=== PATIENT | female | born 1955 | race Caucasian/White ===

== ENCOUNTER 2017-11-22 15:44 | Emergency (ER) | payer MEDICARE, OTHER ==
[~2017-11-22] VITALS: Ht 167.6 cm; Wt 112.5 kg
[~2017-11-22 15:44] MED LIST: ALLO300 PO; ASPI325EC; ATEN25; ATEN50 PO; AZIT250 PO; CITA20 PO; CYCL10 PO; DIAZ10 PO; DIPH25; ESTR.9; FLUO20 PO; FLUT.05NI; HYDACE5; HYDACE5 PO; IBUP800 PO; LEVSOD50 PO; METO50ER PO; NAPR500 PO; NITR100 PO; OMEP40CA12 PO; OXYC1TAB11 PO; PHENA100 PO; PRAV20 PO; TRIA50; TRIHYD5075 PO
[2017-11-22] MEDS ORDERED: METPRE4DP PO (17:11)
== END 2017-11-22 17:17 | disposition home or self-care (01) ==
LOC: ER 15:44
DX: M10.9 Gout, unspecified (principal); Z88.8 Allergy status to other drugs, medicaments and biological substances; Z79.899 Other long term (current) drug therapy; Z79.891 Long term (current) use of opiate analgesic; I10 Essential (primary) hypertension; E78.5 Hyperlipidemia, unspecified; Z87.891 Personal history of nicotine dependence
CPT/HCPCS: 99282

== ENCOUNTER 2017-12-08 21:38 | Inpatient (IN) | payer MEDICARE, OTHER ==
[~2017-12-08] VITALS: Ht 167.6 cm; Wt 110.0 kg
[~2017-12-08 21:38] MED LIST changes: +METPRE4DP PO
[2017-12-08 22:22] LABS: BASOPHILS ABSOLUTE AUTO 0.04 K/mm3 (0.00-0.23); BASOPHILS PERCENT AUTO 1 % (0-2); EOSINOPHILS ABSOLUTE AUTO 0.09 K/mm3 (0.00-0.68); EOSINOPHILS PERCENT AUTO 1 % (0-6); Hematocrit 44.5 % (33.0-51.0); Hemoglobin 14.2 g/dL (11.5-16.0); IMMATURE GRAN ABSOLUTE AUTO 0.02 K/mm3 (0.00-0.10); IMMATURE GRAN PERCENT AUTO 0 % (0-1); LYMPHOCYTES ABSOLUTE AUTO 2.79 K/mm3 (0.84-5.20); LYMPHOCYTES PERCENT AUTO 33 % (21-46); MONOCYTES PERCENT AUTO 11 % (4-13); Mean Corpuscular HGB 26.8 pg (26.0-34.0); Mean Corpuscular HGB Conc 31.9 g/dL (31.5-36.5); Mean Corpuscular Volume 84 fL (80-100); Mean Platelet Volume 10.6 fL (9.1-12.4); NEUTROPHILS ABSOLUTE AUTO 4.75 K/mm3 (1.96-9.15); NEUTROPHILS PERCENT AUTO 55 % (41-73); Platelet Count 322 K/mm3 (150-400); RDW Coefficient Variation 13.3 % (11.7-14.2); RDW Standard Deviation 40.9 fL (35.1-46.3); White Blood Cell Count 8.59 K/mm3 (4.00-11.30)
[2017-12-08 22:42] LABS: Alanine Aminotransfer (ALT/SGP 41 U/L (12-78); Albumin, Blood 3.4 g/dL (3.4-5.0); Albumin/Globulin Ratio 0.7 (0.8-1.8); Alk Phos 143 U/L (50-136); Anion Gap 10 mmol/L (6-16); Aspartate Aminotrans (AST/SGOT 31 U/L (12-37); Bilirubin, Total 0.5 mg/dL (0.1-1.0); Blood Urea Nitrogen 15 mg/dL (8-24); Bun/Creatinine Ratio 12.4 (12.0-20.0); CO2, Blood 26 mmol/L (21-32); Calcium, Blood 8.5 mg/dL (8.5-10.1); Chloride, Blood 105 mmol/L (98-108); Creatinine, Blood 1.21 mg/dL (0.40-1.00); Globulin, Blood 4.6 g/dL (2.2-4.0); Glomerular Filtration Rate 48 (60-); Glucose, Blood 131 mg/dL (70-99); Potassium, Blood 3.4 mmol/L (3.5-5.5); Sodium, Blood 141 mmol/L (136-145); Troponin I <0.015 ng/mL (0.000-0.040)
[2017-12-08] MEDS ORDERED: MONT10T PO (22:44)
[2017-12-08] MEDS ORDERED: FURO40 PO (22:45)
[2017-12-08] MEDS ORDERED: ELIQUIS5 MG PO (22:45)
[2017-12-08] MEDS ORDERED: PANT40 PO (22:45)
[2017-12-08] MEDS ORDERED: Prozac20 MG PO (22:46)
[2017-12-08] MEDS ORDERED: EZET10 PO (22:47)
[2017-12-08] MEDS ORDERED: POTCHL20ER PO (22:47)
[2017-12-08] MEDS ORDERED: ATOR80 PO (22:47)
[2017-12-08] MEDS ORDERED: NITR.4SL SL (22:48)
[2017-12-08] MEDS ORDERED: ASPI81CH PO (22:48)
[2017-12-08 23:18] LABS: Magnesium, Blood 1.5 mg/dL (1.6-2.4)
[2017-12-09] MEDS ORDERED: Toprol Xl50 MG PO (00:29)
[2017-12-09] MEDS ORDERED: METO50ER PO (03:36)
[2017-12-09 04:31] LABS: Bun/Creatinine Ratio 12.9 (12.0-20.0); Calcium, Blood 8.1 mg/dL (8.5-10.1); Creatinine, Blood 1.16 mg/dL (0.40-1.00); Potassium, Blood 3.5 mmol/L (3.5-5.5)
[2017-12-09 23:21] LABS: Source, Urine Clean Catch
[2017-12-09 23:25] LABS: Bilirubin, Urine Neg (Neg); Blood, Urine Neg (Neg); Glucose Qualitative, Urine Neg (Neg); Ketones, Urine Neg (Neg); Leukocyte Esterase, Urine Neg (Neg); Nitrite, Urine Neg (Neg); Protein, Urine Neg (Neg); Urobilinogen, Urine NORM (Normal)
[2017-12-09 23:41] LABS: Appearance, Urine Clear (Clear); Color, Urine Yellow (P-Yellow)
[2017-12-10 04:14] LABS: BASOPHILS ABSOLUTE AUTO 0.03 K/mm3 (0.00-0.23); BASOPHILS PERCENT AUTO 1 % (0-2); EOSINOPHILS ABSOLUTE AUTO 0.14 K/mm3 (0.00-0.68); EOSINOPHILS PERCENT AUTO 2 % (0-6); Hematocrit 36.4 % (33.0-51.0); Hemoglobin 11.3 g/dL (11.5-16.0); IMMATURE GRAN ABSOLUTE AUTO 0.01 K/mm3 (0.00-0.10); IMMATURE GRAN PERCENT AUTO 0 % (0-1); LYMPHOCYTES ABSOLUTE AUTO 2.16 K/mm3 (0.84-5.20); LYMPHOCYTES PERCENT AUTO 36 % (21-46); MONOCYTES ABSOLUTE AUTO 0.56 K/mm3 (0.16-1.47); MONOCYTES PERCENT AUTO 9 % (4-13); Mean Corpuscular HGB 26.5 pg (26.0-34.0); Mean Corpuscular Volume 85 fL (80-100); Mean Platelet Volume 10.8 fL (9.1-12.4); NEUTROPHILS ABSOLUTE AUTO 3.06 K/mm3 (1.96-9.15); NEUTROPHILS PERCENT AUTO 51 % (41-73); Platelet Count 247 K/mm3 (150-400); RDW Coefficient Variation 13.6 % (11.7-14.2); RDW Standard Deviation 42.1 fL (35.1-46.3); Red Blood Cell Count 4.27 M/mm3 (3.80-5.20); White Blood Cell Count 5.96 K/mm3 (4.00-11.30)
[2017-12-10 04:38] LABS: Alanine Aminotransfer (ALT/SGP 33 U/L (12-78); Albumin, Blood 2.7 g/dL (3.4-5.0); Albumin/Globulin Ratio 0.7 (0.8-1.8); Alk Phos 111 U/L (50-136); Anion Gap 6 mmol/L (6-16); Aspartate Aminotrans (AST/SGOT 25 U/L (12-37); Bilirubin, Total 0.5 mg/dL (0.1-1.0); Blood Urea Nitrogen 15 mg/dL (8-24); Bun/Creatinine Ratio 14.3 (12.0-20.0); CHOL/HDL RATIO 3.7; CO2, Blood 27 mmol/L (21-32); Calcium, Blood 8.5 mg/dL (8.5-10.1); Chloride, Blood 109 mmol/L (98-108); Cholesterol 122 mg/dL (50-200); Creatinine, Blood 1.05 mg/dL (0.40-1.00); Globulin, Blood 3.7 g/dL (2.2-4.0); Glomerular Filtration Rate 56 (60-); Glucose, Blood 118 mg/dL (70-99); HDL Cholesterol 33 mg/dL (>39); LDL/HDL RATIO 1.9; Low Density Lipoprotein Chol 63 mg/dL (0-110); Magnesium, Blood 2.1 mg/dL (1.6-2.4); Potassium, Blood 3.7 mmol/L (3.5-5.5); Sodium, Blood 142 mmol/L (136-145); Total Protein, Blood 6.4 g/dL (6.4-8.2); Triglycerides 131 mg/dL (30-160); Very Low Density Lipoprot Chol 26 mg/dL (6-32)
== END 2017-12-10 10:47 | disposition home or self-care (01) | DRG 309 ==
LOC: ER 21:38 → PCU 21:39
PROVIDERS: Emergency Medicine; Internal Medicine
DX: I48.91 Unspecified atrial fibrillation (principal); N17.9 Acute kidney failure, unspecified; I25.10 Atherosclerotic heart disease of native coronary artery without angina pectoris; E11.9 Type 2 diabetes mellitus without complications; E87.6 Hypokalemia; E83.42 Hypomagnesemia; E78.5 Hyperlipidemia, unspecified; M10.9 Gout, unspecified; I10 Essential (primary) hypertension; Z88.1 Allergy status to other antibiotic agents; Z95.5 Presence of coronary angioplasty implant and graft; E03.9 Hypothyroidism, unspecified; Z87.891 Personal history of nicotine dependence; Z79.82 Long term (current) use of aspirin; Z79.899 Other long term (current) drug therapy
CPT/HCPCS: 36415; 71046; 80048; 80053; 80061; 81003; 83735; 83880; 84443; 84484; 85025; 93005; 93010; 93306; 96365; 96368; 96375; 99285; J3475; J3480; J7030

== ENCOUNTER 2017-12-18 19:24 | Emergency (ER) | payer OTHER, MEDICARE ==
[~2017-12-18] VITALS: Ht 167.6 cm; Wt 109.8 kg
[~2017-12-18 19:24] MED LIST changes: +ASPI81CH PO; +ATOR80 PO; +ELIQUIS5 MG PO; +EZET10 PO; +FURO40 PO; +MONT10T PO; +NITR.4SL SL; +PANT40 PO; +POTCHL20ER PO; +Prozac20 MG PO; +Toprol Xl50 MG PO
[2017-12-18 20:10] LABS: BASOPHILS ABSOLUTE AUTO 0.04 K/mm3 (0.00-0.23); BASOPHILS PERCENT AUTO 0 % (0-2); EOSINOPHILS PERCENT AUTO 1 % (0-6); Hematocrit 43.6 % (33.0-51.0); Hemoglobin 13.8 g/dL (11.5-16.0); IMMATURE GRAN ABSOLUTE AUTO 0.05 K/mm3 (0.00-0.10); IMMATURE GRAN PERCENT AUTO 1 % (0-1); LYMPHOCYTES ABSOLUTE AUTO 1.38 K/mm3 (0.84-5.20); LYMPHOCYTES PERCENT AUTO 13 % (21-46); MONOCYTES ABSOLUTE AUTO 0.83 K/mm3 (0.16-1.47); MONOCYTES PERCENT AUTO 8 % (4-13); Mean Corpuscular HGB 26.6 pg (26.0-34.0); Mean Corpuscular HGB Conc 31.7 g/dL (31.5-36.5); Mean Corpuscular Volume 84 fL (80-100); Mean Platelet Volume 11.2 fL (9.1-12.4); NEUTROPHILS ABSOLUTE AUTO 8.17 K/mm3 (1.96-9.15); NEUTROPHILS PERCENT AUTO 77 % (41-73); Platelet Count 269 K/mm3 (150-400); RDW Coefficient Variation 13.8 % (11.7-14.2); RDW Standard Deviation 42.6 fL (35.1-46.3); Red Blood Cell Count 5.18 M/mm3 (3.80-5.20); White Blood Cell Count 10.57 K/mm3 (4.00-11.30)
[2017-12-18 20:45] LABS: Alanine Aminotransfer (ALT/SGP 38 U/L (12-78); Albumin, Blood 3.5 g/dL (3.4-5.0); Albumin/Globulin Ratio 0.8 (0.8-1.8); Alk Phos 148 U/L (50-136); Anion Gap 8 mmol/L (6-16); Aspartate Aminotrans (AST/SGOT 31 U/L (12-37); Bilirubin, Total 0.6 mg/dL (0.1-1.0); Blood Urea Nitrogen 16 mg/dL (8-24); CO2, Blood 27 mmol/L (21-32); Chloride, Blood 107 mmol/L (98-108); Creatinine, Blood 1.23 mg/dL (0.40-1.00); Globulin, Blood 4.3 g/dL (2.2-4.0); Glomerular Filtration Rate 47 (60-); Glucose, Blood 123 mg/dL (70-99); Potassium, Blood 3.5 mmol/L (3.5-5.5); Sodium, Blood 142 mmol/L (136-145); Total Protein, Blood 7.8 g/dL (6.4-8.2); Troponin I <0.015 ng/mL (0.000-0.040)
[2017-12-18 22:27] LABS: International Normalized Ratio 1.26; Prothrombin Time Results 13.2 Sec (9.7-11.5)
[2017-12-18] MEDS ORDERED: Norco 5-325 Ta1 EACH PO (23:27)
== END 2017-12-18 23:54 | disposition home or self-care (01) ==
LOC: ER 19:24
PROVIDERS: Emergency Medicine
DX: S20.211A Contusion of right front wall of thorax, initial encounter (principal); S30.1XXA Contusion of abdominal wall, initial encounter; I48.91 Unspecified atrial fibrillation; I10 Essential (primary) hypertension; E78.5 Hyperlipidemia, unspecified; Z88.1 Allergy status to other antibiotic agents; Z79.899 Other long term (current) drug therapy; Z79.82 Long term (current) use of aspirin; V47.5XXA Car driver injured in collision with fixed or stationary object in traffic accident, initial encounter
CPT/HCPCS: 36415; 70450; 71046; 71260; 72125; 74177; 80053; 84484; 85025; 85610; 93005; 93010; 96361; 96374; 96375; 99284; G0480; J3010; J7030; Q9967

== ENCOUNTER 2018-01-12 18:36 | Inpatient (IN) | payer OTHER, MEDICARE ==
[~2018-01-12] VITALS: Ht 167.6 cm; Wt 105.9 kg
[~2018-01-12 18:36] MED LIST changes: +Norco 5-325 Ta1 EACH PO
[2018-01-12 19:14] LABS: BASOPHILS ABSOLUTE AUTO 0.03 K/mm3 (0.00-0.23); BASOPHILS PERCENT AUTO 0 % (0-2); EOSINOPHILS ABSOLUTE AUTO 0.09 K/mm3 (0.00-0.68); EOSINOPHILS PERCENT AUTO 1 % (0-6); Hematocrit 38.1 % (33.0-51.0); Hemoglobin 12.3 g/dL (11.5-16.0); IMMATURE GRAN ABSOLUTE AUTO 0.01 K/mm3 (0.00-0.10); IMMATURE GRAN PERCENT AUTO 0 % (0-1); LYMPHOCYTES ABSOLUTE AUTO 2.08 K/mm3 (0.84-5.20); LYMPHOCYTES PERCENT AUTO 22 % (21-46); MONOCYTES ABSOLUTE AUTO 1.02 K/mm3 (0.16-1.47); MONOCYTES PERCENT AUTO 11 % (4-13); Mean Corpuscular HGB 26.5 pg (26.0-34.0); Mean Corpuscular HGB Conc 32.3 g/dL (31.5-36.5); Mean Corpuscular Volume 82 fL (80-100); Mean Platelet Volume 10.4 fL (9.1-12.4); NEUTROPHILS ABSOLUTE AUTO 6.36 K/mm3 (1.96-9.15); NEUTROPHILS PERCENT AUTO 66 % (41-73); Platelet Count 289 K/mm3 (150-400); RDW Coefficient Variation 13.6 % (11.7-14.2); RDW Standard Deviation 40.6 fL (35.1-46.3); Red Blood Cell Count 4.65 M/mm3 (3.80-5.20); White Blood Cell Count 9.59 K/mm3 (4.00-11.30)
[2018-01-12 19:45] LABS: Alanine Aminotransfer (ALT/SGP 31 U/L (12-78); Albumin, Blood 3.1 g/dL (3.4-5.0); Albumin/Globulin Ratio 0.7 (0.8-1.8); Alk Phos 206 U/L (50-136); Anion Gap 10 mmol/L (6-16); Aspartate Aminotrans (AST/SGOT 21 U/L (12-37); Bilirubin, Total 0.7 mg/dL (0.1-1.0); Blood Urea Nitrogen 19 mg/dL (8-24); Bun/Creatinine Ratio 15.6 (12.0-20.0); CO2, Blood 25 mmol/L (21-32); Calcium, Blood 8.7 mg/dL (8.5-10.1); Chloride, Blood 105 mmol/L (98-108); Creatinine, Blood 1.22 mg/dL (0.40-1.00); Globulin, Blood 4.5 g/dL (2.2-4.0); Glomerular Filtration Rate 47 (60-); Glucose, Blood 147 mg/dL (70-99); Potassium, Blood 3.1 mmol/L (3.5-5.5); Sodium, Blood 140 mmol/L (136-145); Total Protein, Blood 7.6 g/dL (6.4-8.2); Troponin I <0.015 ng/mL (0.000-0.040)
[2018-01-12 20:27] LABS: Source, Urine Clean Catch
[2018-01-12 20:29] LABS: Appearance, Urine Hazy (Clear); Bilirubin, Urine Neg (Neg); Blood, Urine 4+ (Neg); Color, Urine Yellow (P-Yellow); Glucose Qualitative, Urine Neg (Neg); Ketones, Urine Neg (Neg); Leukocyte Esterase, Urine 3+ (Neg); Nitrite, Urine Neg (Neg); Protein, Urine 3+ (Neg); Urobilinogen, Urine NORM (Normal)
[2018-01-12 20:35] LABS: Squamous Epithelial Cells Few /hpf (Few)
[2018-01-12 20:36] LABS: Bacteria Many /hpf; White Blood Cells, Urine TNTC /hpf (0-5)
[2018-01-13 01:21] LABS: Thyroid Stimulating Hormone 0.006 uIU/mL (0.360-4.800)
[2018-01-13 05:04] LABS: Calcium, Blood 8.5 mg/dL (8.5-10.1); Creatinine, Blood 1.06 mg/dL (0.40-1.00); Magnesium, Blood 1.5 mg/dL (1.6-2.4)
[2018-01-13 09:11] LABS: Free Thyroxine 2.41 ng/dL (0.70-1.60)
[2018-01-13 09:13] LABS: Triiodothyronine, Free 3.97 pg/mL (2.18-3.98)
[2018-01-14 04:19] LABS: Albumin, Blood 2.9 g/dL (3.4-5.0); Anion Gap 9 mmol/L (6-16); Blood Urea Nitrogen 17 mg/dL (8-24); Bun/Creatinine Ratio 16.3 (12.0-20.0); CO2, Blood 25 mmol/L (21-32); Calcium, Blood 8.8 mg/dL (8.5-10.1); Chloride, Blood 108 mmol/L (98-108); Creatinine, Blood 1.04 mg/dL (0.40-1.00); Glomerular Filtration Rate 57 (60-); Glucose, Blood 126 mg/dL (70-99); Magnesium, Blood 1.8 mg/dL (1.6-2.4); Potassium, Blood 3.4 mmol/L (3.5-5.5); Sodium, Blood 142 mmol/L (136-145)
[2018-01-15 09:46] LABS: Albumin, Blood 2.7 g/dL (3.4-5.0); Anion Gap 7 mmol/L (6-16); Blood Urea Nitrogen 18 mg/dL (8-24); Bun/Creatinine Ratio 16.7 (12.0-20.0); CO2, Blood 27 mmol/L (21-32); Calcium, Blood 8.7 mg/dL (8.5-10.1); Chloride, Blood 107 mmol/L (98-108); Creatinine, Blood 1.08 mg/dL (0.40-1.00); Glomerular Filtration Rate 55 (60-); Glucose, Blood 183 mg/dL (70-99); Phosphorus, Blood 2.9 mg/dL (2.5-4.9); Potassium, Blood 3.4 mmol/L (3.5-5.5); Sodium, Blood 141 mmol/L (136-145)
[2018-01-16 09:22] LABS: Anion Gap 6 mmol/L (6-16); Blood Urea Nitrogen 17 mg/dL (8-24); Bun/Creatinine Ratio 15.3 (12.0-20.0); CO2, Blood 27 mmol/L (21-32); Calcium, Blood 9.2 mg/dL (8.5-10.1); Chloride, Blood 108 mmol/L (98-108); Creatinine, Blood 1.11 mg/dL (0.40-1.00); Glomerular Filtration Rate 53 (60-); Glucose, Blood 119 mg/dL (70-99); Potassium, Blood 3.8 mmol/L (3.5-5.5); Sodium, Blood 141 mmol/L (136-145)
[2018-01-16 09:57] LABS: Free Thyroxine 2.16 ng/dL (0.70-1.60); Magnesium, Blood 1.7 mg/dL (1.6-2.4)
[2018-01-16 10:03] LABS: Thyroid Stimulating Hormone 0.011 uIU/mL (0.360-4.800)
[2018-01-16 10:13] LABS: Triiodothyronine, Free 4.17 pg/mL (2.18-3.98)
[2018-01-17 04:31] LABS: Albumin, Blood 2.8 g/dL (3.4-5.0); Anion Gap 9 mmol/L (6-16); Blood Urea Nitrogen 22 mg/dL (8-24); Bun/Creatinine Ratio 18.8 (12.0-20.0); CO2, Blood 27 mmol/L (21-32); Chloride, Blood 105 mmol/L (98-108); Creatinine, Blood 1.17 mg/dL (0.40-1.00); Glomerular Filtration Rate 50 (60-); Glucose, Blood 127 mg/dL (70-99); Phosphorus, Blood 3.4 mg/dL (2.5-4.9); Potassium, Blood 3.7 mmol/L (3.5-5.5); Sodium, Blood 141 mmol/L (136-145)
[2018-01-17] MEDS ORDERED: LEVO750 PO (10:43)
== END 2018-01-17 12:50 | disposition home or self-care (01) | DRG 309 ==
LOC: ER 18:36 → PCU 18:37
PROVIDERS: Emergency Medicine; Family Medicine; Internal Medicine
DX: I48.91 Unspecified atrial fibrillation (principal); N39.0 Urinary tract infection, site not specified; E11.22 Type 2 diabetes mellitus with diabetic chronic kidney disease; N18.3 Chronic kidney disease, stage 3 (moderate); I25.10 Atherosclerotic heart disease of native coronary artery without angina pectoris; E03.9 Hypothyroidism, unspecified; E87.6 Hypokalemia; M54.2 Cervicalgia; G47.33 Obstructive sleep apnea (adult) (pediatric); I25.9 Chronic ischemic heart disease, unspecified; I25.2 Old myocardial infarction; E78.5 Hyperlipidemia, unspecified; B96.20 Unspecified Escherichia coli [E. coli] as the cause of diseases classified elsewhere; Z79.01 Long term (current) use of anticoagulants; Z79.82 Long term (current) use of aspirin; Z95.5 Presence of coronary angioplasty implant and graft
CPT/HCPCS: 36415; 71046; 80048; 80053; 80069; 81001; 83735; 83880; 84439; 84443; 84481; 84484; 85025; 87077; 87086; 87186; 93005; 93010; 96361; 96374; 96375; 96376; 99285; G0378; J3475; J7030

== ENCOUNTER 2018-04-29 06:13 | Day surgery (SDC) | payer MEDICARE, OTHER ==
[~2018-04-29 06:13] MED LIST changes: +LEVO750 PO
[2018-04-29] MEDS ORDERED: Amiodarone HCl200 MG PO (06:42)
[2018-04-29 06:56] LABS: Bun/Creatinine Ratio 14.1 (12.0-20.0); Calcium, Blood 8.7 mg/dL (8.5-10.1); Creatinine, Blood 1.28 mg/dL (0.40-1.00); Potassium, Blood 3.7 mmol/L (3.5-5.5)
== END 2018-04-29 22:46 | disposition home or self-care (01) ==
LOC: MHTC 06:13
PROVIDERS: Internal Medicine Cardiovascular Disease
DX: I48.0 Paroxysmal atrial fibrillation (principal); E78.6 Lipoprotein deficiency; E87.6 Hypokalemia; R00.1 Bradycardia, unspecified; I44.0 Atrioventricular block, first degree; Z87.891 Personal history of nicotine dependence; Z79.02 Long term (current) use of antithrombotics/antiplatelets; Z79.899 Other long term (current) drug therapy
CPT/HCPCS: 36415; 80048; 92960; 93005; 93010; J7030

== ENCOUNTER 2019-03-16 08:45 | Emergency (ER) | payer MEDICARE, OTHER ==
[~2019-03-16] VITALS: Ht 160 cm; Wt 113.4 kg
[~2019-03-16 08:45] MED LIST changes: +Amiodarone HCl200 MG PO
[2019-03-16 09:38] LABS: BASOPHILS ABSOLUTE AUTO 0.05 K/mm3 (0.00-0.23); BASOPHILS PERCENT AUTO 1 % (0-2); EOSINOPHILS ABSOLUTE AUTO 0.12 K/mm3 (0.00-0.68); EOSINOPHILS PERCENT AUTO 1 % (0-6); IMMATURE GRAN ABSOLUTE AUTO 0.02 K/mm3 (0.00-0.10); IMMATURE GRAN PERCENT AUTO 0 % (0-1); LYMPHOCYTES PERCENT AUTO 26 % (21-46); MONOCYTES ABSOLUTE AUTO 0.68 K/mm3 (0.16-1.47); MONOCYTES PERCENT AUTO 8 % (4-13); Mean Corpuscular HGB 26.6 pg (26.0-34.0); Mean Corpuscular HGB Conc 31.9 g/dL (31.5-36.5); Mean Corpuscular Volume 83 fL (80-100); Mean Platelet Volume 10.6 fL (9.1-12.4); NEUTROPHILS ABSOLUTE AUTO 5.48 K/mm3 (1.96-9.15); NEUTROPHILS PERCENT AUTO 64 % (41-73); Platelet Count 320 K/mm3 (150-400); RDW Coefficient Variation 14.8 % (11.7-14.2); RDW Standard Deviation 44.4 fL (35.1-46.3); Red Blood Cell Count 5.64 M/mm3 (3.80-5.20); White Blood Cell Count 8.55 K/mm3 (4.00-11.30)
[2019-03-16 10:02] LABS: Alanine Aminotransfer (ALT/SGP 42 U/L (12-78); Albumin, Blood 3.4 g/dL (3.4-5.0); Albumin/Globulin Ratio 0.7 (0.8-1.8); Alk Phos 175 U/L (50-136); Anion Gap 9 mmol/L (6-16); Aspartate Aminotrans (AST/SGOT 35 U/L (12-37); Bilirubin, Total 0.6 mg/dL (0.1-1.0); Blood Urea Nitrogen 13 mg/dL (8-24); Bun/Creatinine Ratio 11.1 (12.0-20.0); CO2, Blood 24 mmol/L (21-32); Calcium, Blood 8.7 mg/dL (8.5-10.1); Chloride, Blood 105 mmol/L (98-108); Creatinine, Blood 1.17 mg/dL (0.40-1.00); Globulin, Blood 4.8 g/dL (2.2-4.0); Glomerular Filtration Rate 50 (60-); Glucose, Blood 273 mg/dL (70-99); Potassium, Blood 3.8 mmol/L (3.5-5.5); Sodium, Blood 138 mmol/L (136-145); Total Protein, Blood 8.2 g/dL (6.4-8.2); Troponin I <0.015 ng/mL (0.000-0.040)
[2019-03-16] MEDS ORDERED: Allopurinol100 MG PO (11:26)
[2019-03-16] MEDS ORDERED: ELIQUIS5 M2 PO (11:26)
== END 2019-03-16 11:35 | disposition home or self-care (01) ==
LOC: ER 08:45
PROVIDERS: Physician Assistant
DX: I48.91 Unspecified atrial fibrillation (principal); Z79.899 Other long term (current) drug therapy; Z79.82 Long term (current) use of aspirin; Z88.8 Allergy status to other drugs, medicaments and biological substances; I10 Essential (primary) hypertension; E78.5 Hyperlipidemia, unspecified; I25.2 Old myocardial infarction; E11.9 Type 2 diabetes mellitus without complications; Z87.891 Personal history of nicotine dependence
CPT/HCPCS: 36415; 71046; 80053; 84484; 85025; 93005; 93010; 96374; 99285-25

== ENCOUNTER 2019-08-02 10:15 | Emergency (ER) | payer MEDICARE, OTHER ==
[~2019-08-02] VITALS: Ht 160 cm; Wt 109.8 kg
[~2019-08-02 10:15] MED LIST changes: +Allopurinol100 MG PO; +ELIQUIS5 M2 PO
== END 2019-08-02 13:35 | disposition home or self-care (01) ==
LOC: ER 10:15
DX: S91.205A Unspecified open wound of left lesser toe(s) with damage to nail, initial encounter (principal); W22.8XXA Striking against or struck by other objects, initial encounter; Z88.8 Allergy status to other drugs, medicaments and biological substances; Z79.899 Other long term (current) drug therapy; I10 Essential (primary) hypertension; E78.5 Hyperlipidemia, unspecified; I48.91 Unspecified atrial fibrillation; I25.10 Atherosclerotic heart disease of native coronary artery without angina pectoris; Z87.891 Personal history of nicotine dependence
CPT/HCPCS: 90471; 90714; 99282-25

== ENCOUNTER 2019-10-26 18:56 | Emergency (ER) | payer MEDICARE, OTHER ==
[~2019-10-26] VITALS: Ht 162.6 cm; Wt 109.3 kg
[2019-10-26] MEDS ORDERED: JARDIANCE10 MG PO (19:24)
[2019-10-26 19:55] LABS: BASOPHILS ABSOLUTE AUTO 0.04 K/mm3 (0.00-0.23); BASOPHILS PERCENT AUTO 0 % (0-2); EOSINOPHILS ABSOLUTE AUTO 0.11 K/mm3 (0.00-0.68); EOSINOPHILS PERCENT AUTO 1 % (0-6); Hematocrit 45.2 % (33.0-51.0); Hemoglobin 14.1 g/dL (11.5-16.0); IMMATURE GRAN ABSOLUTE AUTO 0.03 K/mm3 (0.00-0.10); IMMATURE GRAN PERCENT AUTO 0 % (0-1); LYMPHOCYTES ABSOLUTE AUTO 1.65 K/mm3 (0.84-5.20); LYMPHOCYTES PERCENT AUTO 15 % (21-46); MONOCYTES ABSOLUTE AUTO 0.68 K/mm3 (0.16-1.47); MONOCYTES PERCENT AUTO 6 % (4-13); Mean Corpuscular HGB 26.1 pg (26.0-34.0); Mean Corpuscular HGB Conc 31.2 g/dL (31.5-36.5); Mean Corpuscular Volume 84 fL (80-100); Mean Platelet Volume 10.4 fL (9.1-12.4); NEUTROPHILS ABSOLUTE AUTO 8.66 K/mm3 (1.96-9.15); NEUTROPHILS PERCENT AUTO 77 % (41-73); Platelet Count 286 K/mm3 (150-400); RDW Coefficient Variation 14.6 % (11.7-14.2); RDW Standard Deviation 44.5 fL (35.1-46.3); White Blood Cell Count 11.17 K/mm3 (4.00-11.30)
[2019-10-26 19:58] LABS: Influenza A Negative (NEGATIVE); Influenza B Negative (NEGATIVE)
[2019-10-26 20:17] LABS: Alanine Aminotransfer (ALT/SGP 26 U/L (12-78); Albumin, Blood 3.1 g/dL (3.4-5.0); Albumin/Globulin Ratio 0.7 (0.8-1.8); Alk Phos 152 U/L (50-136); Anion Gap 7 mmol/L (6-16); Aspartate Aminotrans (AST/SGOT 21 U/L (12-37); Bilirubin, Total 0.7 mg/dL (0.1-1.0); Blood Urea Nitrogen 16 mg/dL (8-24); Bun/Creatinine Ratio 10.3 (12.0-20.0); CO2, Blood 24 mmol/L (21-32); Calcium, Blood 8.5 mg/dL (8.5-10.1); Chloride, Blood 107 mmol/L (98-108); Creatinine, Blood 1.55 mg/dL (0.40-1.00); Globulin, Blood 4.7 g/dL (2.2-4.0); Glomerular Filtration Rate 36 (60-); Glucose, Blood 157 mg/dL (70-99); Potassium, Blood 3.4 mmol/L (3.5-5.5); Sodium, Blood 138 mmol/L (136-145); Total Protein, Blood 7.8 g/dL (6.4-8.2); Troponin I <0.015 ng/mL (0.000-0.040)
[2019-10-26] MEDS ORDERED: TESSALON PERLE100 MG PO (21:40)
[2019-10-26] MEDS ORDERED: Prednisone20 MG PO (21:40)
[2019-10-26] MEDS ORDERED: Vibramycin100 MG PO (21:40)
== END 2019-10-26 22:05 | disposition home or self-care (01) ==
LOC: ER 18:56
PROVIDERS: Physician Assistant
DX: J40 Bronchitis, not specified as acute or chronic (principal); J98.01 Acute bronchospasm; I10 Essential (primary) hypertension; E78.5 Hyperlipidemia, unspecified; M10.9 Gout, unspecified; I48.91 Unspecified atrial fibrillation; Z79.899 Other long term (current) drug therapy
CPT/HCPCS: 71046; 80053; 83605; 84484; 85025; 87804; 93005; 93010; 94640; 99284-25

== ENCOUNTER 2020-06-21 07:54 | Day surgery (SDC) | payer MEDICARE, OTHER ==
[~2020-06-21] VITALS: Ht 167.6 cm; Wt 110.0 kg
[~2020-06-21 07:54] MED LIST changes: +ACET325 PO; +Aspir 8181 MG PO; +EUTHYROX50 MCG PO; +JARDIANCE10 MG PO; +LISI5 PO; +MAGNESIUM OXID500 MG PO; +Prednisone20 MG PO; +SITA100T2 PO; +TESSALON PERLE100 MG PO; +Vibramycin100 MG PO
[2020-06-21] MEDS ORDERED: Vitamin D2000 UNIT PO (08:21)
[2020-06-21] MEDS ORDERED: Isosorbide Mono30 MG PO (10:57)
--- NOTE | 2020-06-21 12:15 | NUR ---
APPROX 10CC AIR REMOVED FROM R WRIST TR BAND /S BLEEDING OR SWELLING. PT UP TO THE BATHROOM /C SBA. TOLERATED WELL.
--- NOTE | 2020-06-21 13:01 | NUR ---
R WRIST TR BAND REMOVED /S BLEEDING OR SWELLING. PUNCTURE AREA CLEANED /C NS AND DRESSED /C CLOTH DOT DRSG. R WRIST SPLINT REAPPLIED. IV REMOVED. PT VERBALIZED UNDERSTANDING OR WRITTEN AND VERBAL D/C ISNT. PT TAKEN OUT OF THE [facility] VIA W/C.
== END 2020-06-21 13:15 | disposition home or self-care (01) ==
LOC: MHTC 07:54
PROC: B2151ZZ Fluoroscopy of Left Heart using Low Osmolar Contrast (ICD-10-PCS; principal; 2020-06-21)
PROC: B2111ZZ Fluoroscopy of Multiple Coronary Arteries using Low Osmolar Contrast (ICD-10-PCS; principal; 2020-06-21)
DX: I25.119 Atherosclerotic heart disease of native coronary artery with unspecified angina pectoris (principal); R94.39 Abnormal result of other cardiovascular function study; I48.19 Other persistent atrial fibrillation; I12.9 Hypertensive chronic kidney disease with stage 1 through stage 4 chronic kidney disease, or unspecified chronic kidney disease; E11.22 Type 2 diabetes mellitus with diabetic chronic kidney disease; N18.9 Chronic kidney disease, unspecified; I25.2 Old myocardial infarction; I25.5 Ischemic cardiomyopathy; I77.819 Aortic ectasia, unspecified site; E78.5 Hyperlipidemia, unspecified; E03.9 Hypothyroidism, unspecified; E21.2 Other hyperparathyroidism; E66.9 Obesity, unspecified; Z68.39 Body mass index [BMI] 39.0-39.9, adult; Z95.5 Presence of coronary angioplasty implant and graft; Z79.01 Long term (current) use of anticoagulants; Z79.82 Long term (current) use of aspirin; Z79.84 Long term (current) use of oral hypoglycemic drugs; Z79.899 Other long term (current) drug therapy; Z87.891 Personal history of nicotine dependence; Z88.1 Allergy status to other antibiotic agents
CPT/HCPCS: 85347; 93458; 99152; 99153; C1769; C1894; J1644; J2250; J3010; J7030; J7050; Q9967

== ENCOUNTER → 2021-12-15 | Outpatient (CLI) | payer OTHER ==
[~2021-12-15] MED LIST changes: +Isosorbide Mono30 MG PO; +Vitamin D2000 UNIT PO
[2021-12-15 14:35] LABS: Protein, Urine Quantitative 10.9 mg/dL (0.0-11.9)
== END | disposition home or self-care (01) ==
LOC: LAB SHORT 06:20 → LAB FUT 12-09 13:30
PROVIDERS: Internal Medicine Nephrology
DX: N18.30 Chronic kidney disease, stage 3 unspecified (principal); D63.1 Anemia in chronic kidney disease; N25.81 Secondary hyperparathyroidism of renal origin; E55.9 Vitamin D deficiency, unspecified; E78.00 Pure hypercholesterolemia, unspecified; D51.8 Other vitamin B12 deficiency anemias; D50.9 Iron deficiency anemia, unspecified; D52.8 Other folate deficiency anemias; R76.9 Abnormal immunological finding in serum, unspecified; R94.5 Abnormal results of liver function studies; R94.6 Abnormal results of thyroid function studies
CPT/HCPCS: 81050; 82043; 82570; 84156

== ENCOUNTER 2022-04-13 08:20 | Day surgery (SDC) | payer OTHER ==
[~2022-04-13] VITALS: Ht 162.6 cm; Wt 116.4 kg
[~2022-04-13 08:20] MED LIST changes: +AMIL5 PO; +CALC.25 PO; +COLCHICINE0.6 MG PO; +GLIP5 PO
--- NOTE | 2022-04-13 09:10 | NUR ---
INTO SDS AMSSION STARTED BY KALE JAEGER AND ASSUMED CARE BY NISA WELLINGTON.
--- NOTE | 2022-04-13 14:52 | NUR ---
PT ARRIVED TO UNIT FROM PACU A&OX4. REPORTS "SORE" TO L CHEST WALL. INCISION TO L CHEST W/DERMABOND CDI. ALEXANDR COMPRESSED W/SS DRAINAGE. ORIENTED TO USE OF CALL LIGHT. PROVIDED ICE, WATER, JELLO. CALL LIGHT IN REACH. FAMILY AT BEDSIDE.
--- NOTE | 2022-04-13 19:34 | NUR ---
SUMMARY PT POD 0 FOR L MASTECTOMY W/ALEXANDR DRAIN. ALEXANDR DRAIN COMPRESSED. DR WASHINGTON IN THIS EVENING AND CHECKED WOUND SITE. SOME BRUISING AND EDEMA NOTED BUT SITE SOFT. ALEXANDR DRAIN COMPRESSED. CALL LIGHT IN REACH.
--- NOTE | 2022-04-14 06:28 | NUR ---
SHIFT SUMMARY PT A&OX4, PLEASANT AND COOPERATIVE. MEDICATED TWICE FOR PAIN THIS SHIFT. SBA TO BATHROOM TO VOID. ALEXANDR DRAIN EMPTIED TWICE, 95ML SEROSANGUINEOUS. INCISION C/D/I. CALL LIGHT WITHIN REACH
[2022-04-14] MEDS ORDERED: ROXICODONE5 MG PO (11:31)
--- NOTE | 2022-04-14 14:00 | NUR ---
DISCHARGE: PACKET PRINTED AND PT EDUCATED. PT GIVEN BREAST BINDER FOR COMFORT. EDUCATED ON MANAGING ALEXANDR AND KEEPING TRACK OF OUTPUT AT HOME, GIVEN ALEXANDR DRAIN LOG. PT GIVEN SUPPLIES TO DRAIN ALEXANDR. IV DC'D BY REYMUNDO PATTERSON. PT LEFT UNIT VIA WHEELCHAIR AT ABOUT 1230
== END 2022-04-14 12:45 | disposition home or self-care (01) ==
LOC: NM 08:20 → ORSCMMR 08:21 → NM 09:30 → SURS 14:08 → NM 04-14 12:45
PROVIDERS: Surgery
PROC: 07B60ZX Excision of Left Axillary Lymphatic, Open Approach, Diagnostic (ICD-10-PCS; principal; 2022-04-13 10:30)
PROC: 0HBU0ZZ Excision of Left Breast, Open Approach (ICD-10-PCS; principal; 2022-04-13 10:30)
DX: D05.02 Lobular carcinoma in situ of left breast (principal); I25.2 Old myocardial infarction; I48.19 Other persistent atrial fibrillation; I25.10 Atherosclerotic heart disease of native coronary artery without angina pectoris; E11.22 Type 2 diabetes mellitus with diabetic chronic kidney disease; I12.9 Hypertensive chronic kidney disease with stage 1 through stage 4 chronic kidney disease, or unspecified chronic kidney disease; N18.30 Chronic kidney disease, stage 3 unspecified; K21.9 Gastro-esophageal reflux disease without esophagitis; E78.5 Hyperlipidemia, unspecified; E03.9 Hypothyroidism, unspecified; Z95.5 Presence of coronary angioplasty implant and graft; Z87.891 Personal history of nicotine dependence; Z79.01 Long term (current) use of anticoagulants; Z79.84 Long term (current) use of oral hypoglycemic drugs; Z88.8 Allergy status to other drugs, medicaments and biological substances; Z88.2 Allergy status to sulfonamides; Z88.1 Allergy status to other antibiotic agents
CPT/HCPCS: 38792; 82947; 88305; 88307; 88342; A9270; A9520; J1100; J1170; J1650; J2250; J2370; J2405; J2704; J2795; J3010; J7120; Q9968

== ENCOUNTER 2022-07-13 04:29 | Inpatient (IN) | payer OTHER ==
[~2022-07-13] VITALS: Ht 162.6 cm; Wt 110.3 kg
[~2022-07-13 04:29] MED LIST changes: +ROXICODONE5 MG PO
[2022-07-13 05:26] LABS: BASOPHILS ABSOLUTE AUTO 0.05 K/mm3 (0.00-0.23); BASOPHILS PERCENT AUTO 0 % (0-2); EOSINOPHILS ABSOLUTE AUTO 0.02 K/mm3 (0.00-0.68); EOSINOPHILS PERCENT AUTO 0 % (0-6); Hematocrit 44.9 % (33.0-51.0); Hemoglobin 14.2 g/dL (11.5-16.0); IMMATURE GRAN ABSOLUTE AUTO 0.05 K/mm3 (0.00-0.10); IMMATURE GRAN PERCENT AUTO 0 % (0-1); LYMPHOCYTES PERCENT AUTO 6 % (21-46); MONOCYTES ABSOLUTE AUTO 0.92 K/mm3 (0.16-1.47); MONOCYTES PERCENT AUTO 8 % (4-13); Mean Corpuscular HGB 26.2 pg (26.0-34.0); Mean Corpuscular HGB Conc 31.6 g/dL (31.5-36.5); Mean Corpuscular Volume 83 fL (80-100); Mean Platelet Volume 11.2 fL (9.1-12.4); NEUTROPHILS ABSOLUTE AUTO 10.47 K/mm3 (1.96-9.15); NEUTROPHILS PERCENT AUTO 86 % (41-73); Platelet Count 281 K/mm3 (150-400); RDW Coefficient Variation 16.1 % (11.7-14.2); RDW Standard Deviation 48.7 fL (35.1-46.3); Red Blood Cell Count 5.43 M/mm3 (3.80-5.20); White Blood Cell Count 12.21 K/mm3 (4.00-11.30)
[2022-07-13 05:42] LABS: Albumin, Blood 2.9 g/dL (3.4-5.0); Albumin/Globulin Ratio 0.7 (0.8-1.8); Bun/Creatinine Ratio 11.1 (12.0-20.0); Calcium, Blood 8.5 mg/dL (8.5-10.1); Creatinine, Blood 1.35 mg/dL (0.40-1.00); Globulin, Blood 4.4 g/dL (2.2-4.0); Potassium, Blood 4.2 mmol/L (3.5-5.5); Total Protein, Blood 7.3 g/dL (6.4-8.2)
[2022-07-13 05:52] LABS: Influenza A, PCR NEGATIVE (NEGATIVE); Influenza B, PCR NEGATIVE (NEGATIVE); Resp Syncytial Virus, PCR NEGATIVE (NEGATIVE); SARS-Cov-2 (COVID-19) PCR, MMC NEGATIVE (NEGATIVE)
[2022-07-13] MEDS ORDERED: ALLO100 PO (08:02)
[2022-07-13] MEDS ORDERED: AMILORIDE HCL5 M7 PO (08:04)
[2022-07-13] MEDS ORDERED: ELIQUIS5 M2 PO (08:05)
[2022-07-13] MEDS ORDERED: ASPIR 8181 M1 PO (08:06)
[2022-07-13] MEDS ORDERED: ATORVASTATIN CA80 M1 PO (08:08)
[2022-07-13] MEDS ORDERED: CALC.25 PO (08:09)
[2022-07-13] MEDS ORDERED: JARDIANCE10 MG PO (08:10)
[2022-07-13] MEDS ORDERED: EZET10 PO (08:11)
[2022-07-13] MEDS ORDERED: FLUOXETINE HCL20 M1 PO (08:13)
[2022-07-13] MEDS ORDERED: LASIX40 MG PO (08:14)
[2022-07-13] MEDS ORDERED: GLIP5 PO (08:15)
[2022-07-13] MEDS ORDERED: ISOSORBIDE MONO30 MG PO (08:17)
[2022-07-13] MEDS ORDERED: SYNTHROID75 MCG PO (08:18)
[2022-07-13] MEDS ORDERED: LISINOPRIL2.5 MG PO (08:20)
[2022-07-13] MEDS ORDERED: MAGNESIUM OXID400 M1 PO (08:21)
[2022-07-13] MEDS ORDERED: TOPROL XL200 MG PO (08:22)
[2022-07-13] MEDS ORDERED: PANT40 PO (08:24)
--- NOTE | 2022-07-13 09:30 | NUR ---
Assumed care of pt on arrival to ICU 16 at 0900 from emergency department. Pt stood to transfer to ICU bed from ED [facility]. Short of breath with activity. Patient states she experiences shortness of breath at baseline, however her current shortness of breath is much worse than baseline. Connected to monitor. BP stable. HR 115-125, atrial fibrillation. Pt reports she is continuously in afib at baseline. Assigns her daughter, Joann, as alternate decision maker if unable to make own decisions.
[2022-07-13 10:46] LABS: Source, Urine Clean Catch
[2022-07-13 10:50] LABS: Appearance, Urine Hazy (Clear); Bilirubin, Urine Neg (Neg); Blood, Urine Neg (Neg); Color, Urine Yellow (P-Yellow); Glucose Qualitative, Urine 4+ (Neg); Ketones, Urine Neg (Neg); Leukocyte Esterase, Urine Neg (Neg); Nitrite, Urine Neg (Neg); Protein, Urine Neg (Neg); Specific Gravity, Urine 1.015 (1.003-1.022); Urobilinogen, Urine NORM (Normal)
--- NOTE | 2022-07-13 10:55 | NUR ---
Call placed to Dr To to report critical lactic acid. Provider in to see bryanna. Discussed pt's HR and BP with provider. Plan to restart pt's metoprolol succinate at lower dose of 50 mg to start. Discussed pt's tachypnea, as RR is 30 at rest and 40+ with activity. Discussed lung sounds and pt's concern that her breathing is worsening. Currently SpO2 90% or greater with 2 LPM NC. No additional changes to plan of care.
[2022-07-13 10:58] LABS: Bacteria Many /hpf; Red Blood Cells, Urine 0-2 /hpf (0-2); Squamous Epithelial Cells Many /hpf (Few)
[2022-07-13 11:59] LABS: Base Excess Venous -4.6 mmol/L; Bicarbonate Venous 21.3 mmol/L (24.0-30.0); PCO2 Venous 33.3 mmHg (38-42); pH Blood Venous 7.39 (7.34-7.37)
--- NOTE | 2022-07-13 18:37 | NUR ---
SUMMARY No acute changes to initial assessment. Pt changed to PCU status. Neuro/Musc/Psych: A&O x 4. Answers questions, follows commands, verbalizes needs. Pleasant and cooperative with care. Equal strength and range of motion in all extremities. Update given to pt's brother, otherwise patient has been updating friends and family on her own. Resp: Profound dyspnea with exertion. Lungs coarse and diminished t/o. Placed on 2 LPM NC this shift. Pt has since removed cannula from nares and is tolerating room air. Cardiac: Afib with rate 100-110. BP stable. GI: No changes to initial assessment. : No changes to initial assessment. Skin: No changes to initial assessment.
--- NOTE | 2022-07-13 21:00 | NUR ---
ASSUMED CARE. AOX3, ABLE TO MAKE NEEDS KNOWN. SBA TO TOILET, STEADY GAIT. NO PAIN. AFEBRILE. LS COARSE AND DIM IN BASES, OCCATIONALLY WILL HAVE EXPIRTORY WHEEZE. ON 2L NC WITH SATS 95-98%. DYSPENIC WITH EXERTION BUT HELD SATS. COUGH IS PRODUCTIVE WITH GREENISH, BROWN SECRETIONS. SAMPLE SENT TO LAB. SENT MRSA SWAB TO LAB WELL. AFIB ON MONITOR RATE 100-120'S. DENIES CHEST PAIN OR DISCOMFORT. POOR APPETITE, ATE ONLY 25% OF MEAL. DENIES ANY BOWEL ISSUES. VOIDED 900CC OF YELLOW ODOROUS URINE. NOW IN BED, MEDS WERE GIVEN. PLAN IS TO TRANSFER TO PCU.
[2022-07-14 05:07] LABS: BASOPHILS ABSOLUTE AUTO 0.03 K/mm3 (0.00-0.23); BASOPHILS PERCENT AUTO 0 % (0-2); EOSINOPHILS ABSOLUTE AUTO 0.01 K/mm3 (0.00-0.68); EOSINOPHILS PERCENT AUTO 0 % (0-6); Hematocrit 46.6 % (33.0-51.0); Hemoglobin 14.1 g/dL (11.5-16.0); IMMATURE GRAN ABSOLUTE AUTO 0.04 K/mm3 (0.00-0.10); IMMATURE GRAN PERCENT AUTO 1 % (0-1); LYMPHOCYTES ABSOLUTE AUTO 1.35 K/mm3 (0.84-5.20); LYMPHOCYTES PERCENT AUTO 16 % (21-46); MONOCYTES ABSOLUTE AUTO 0.39 K/mm3 (0.16-1.47); MONOCYTES PERCENT AUTO 5 % (4-13); Mean Corpuscular HGB 26.2 pg (26.0-34.0); Mean Corpuscular HGB Conc 30.3 g/dL (31.5-36.5); Mean Corpuscular Volume 87 fL (80-100); Mean Platelet Volume 10.7 fL (9.1-12.4); NEUTROPHILS ABSOLUTE AUTO 6.75 K/mm3 (1.96-9.15); NEUTROPHILS PERCENT AUTO 79 % (41-73); Platelet Count 199 K/mm3 (150-400); RDW Coefficient Variation 16.5 % (11.7-14.2); RDW Standard Deviation 52.1 fL (35.1-46.3); Red Blood Cell Count 5.39 M/mm3 (3.80-5.20); White Blood Cell Count 8.57 K/mm3 (4.00-11.30)
[2022-07-14 05:45] LABS: Albumin, Blood 2.6 g/dL (3.4-5.0); Albumin/Globulin Ratio 0.6 (0.8-1.8); Bun/Creatinine Ratio 13.1 (12.0-20.0); Calcium, Blood 8.1 mg/dL (8.5-10.1); Creatinine, Blood 1.07 mg/dL (0.40-1.00); Globulin, Blood 4.6 g/dL (2.2-4.0); Potassium, Blood 3.7 mmol/L (3.5-5.5); Total Protein, Blood 7.2 g/dL (6.4-8.2)
--- NOTE | 2022-07-14 06:33 | NUR ---
END OF SHIFT SUMMARY NEURO: PT A&OX4. CHRONIC BILATERAL FOOT NEUROPATHY NOTED WITH DIMINISHED SENSATION. FULL SENSATION IN BUE. FULL MOVEMENT IN ALL FOUR EXTREMITIES. GENERALIZED WEAKNESS DUE TO ILLNESS AND DYSPNEA. MAKES NEEDS KNOWN, COOPERATIVE AND FOLLOWS COMMANDS CARDIAC: AFIB 90s-120s BPM. SBP 120s-130s. NO COMPLAINTS OF CHEST PAIN. RESPIRATORY: SOB/DYSPNEA AT REST. TACHYPNEIC. 3 L NC. RHONCHI APPRECIATED IN RLL. COARSE IN LLL. INTERMITTENT EXPIRATORY WHEEZING IN BILATERAL UPPER LOBES. WET COUGH, NON PRODUCTIVE. GI/: CONTINENT OF BOWEL AND BLADDER. 1 BOWEL MOVEMENT OF BROWN DIARRHEA. PUTTING OUT ADEQUATE CLOUDY YELLOW URINE. MUSCULOSKELETAL: GENERALIZED WEAKNESS. PRIMARY CONCERN WITH MOVEMENT IS OXYGEN DEMAND. STAND BY ASSIST WHEN WALKING. PSYCHOSOCIAL: PLEASANT AND COOPERATIVE.
--- NOTE | 2022-07-14 12:31 | NUR ---
REASSESSMENT PT HAS BEEN BACK AND FORTH BETWEEN THE BED AND CHAIR THIS MORNING. HER HR WAS UP IN THE 130 AND 140S THIS AM, BUT HAS SLOWED DOWN TO THE 1TEENS SINCE RECEIVING HER METOPROLOL. PT SAYS HER BREATHING FEELS A LITTLE BETTER THAN THIS MORNING. WHEEZING HAS IMPROVED ON THE L, STILL PRESENT, BUT LESS ON THE R, BOTH LUNGS STILL COARSE. PT IS NAUSEOUS CURRENTLY, DR. FOLEY INFORMED AND ORDERED ZOFRAN, GIVEN. GETTING UP TO THE BR TO VOID. CONTINUING TO MONITOR.
--- NOTE | 2022-07-14 13:40 | NUR ---
PT TO CT FOR PE STUDY
--- NOTE | 2022-07-14 14:07 | NUR ---
PT BACK FROM CT, TOLERATED WELL.
--- NOTE | 2022-07-14 17:15 | NUR ---
SHIFT SUMMARY PT'S BREATHING AND HR HAVE IMPROVED THROUGHOUT THE SHIFT. SHE REMAINS ON 3L/NC, BUT HER WHEEZING HAS RESOLVED AND SHE IS LESS DYSPNEIC WITH ACTIVITY. HER LUNGS ARE STILL COARSE THOUGH. HR IN THE LOW 100S, REMAINS AFIB, BP STABLE. NAUSEA IMPROVED AFTER ONE DOSE OF ZOFRAN. GOING INTO THE BR TO VOID. THE FIRST HALF OF SHIFT THE PT WAS NOT VOIDING IN THE HAT SO OUTPUT VOLUMES WEREN'T RECORDED. PT HAS BEEN UPDATED THROUGHOUT THE SHIFT AND PT IS UPDATING HER FAMILY.
[2022-07-14 19:59] LABS: Vancomycin, Trough 22.7 ug/mL (5.0-10.0)
[2022-07-15 04:23] LABS: BASOPHILS ABSOLUTE AUTO 0.03 K/mm3 (0.00-0.23); BASOPHILS PERCENT AUTO 1 % (0-2); EOSINOPHILS ABSOLUTE AUTO 0.04 K/mm3 (0.00-0.68); EOSINOPHILS PERCENT AUTO 1 % (0-6); Hematocrit 46.2 % (33.0-51.0); Hemoglobin 14.4 g/dL (11.5-16.0); IMMATURE GRAN ABSOLUTE AUTO 0.02 K/mm3 (0.00-0.10); IMMATURE GRAN PERCENT AUTO 0 % (0-1); LYMPHOCYTES ABSOLUTE AUTO 1.31 K/mm3 (0.84-5.20); LYMPHOCYTES PERCENT AUTO 20 % (21-46); MONOCYTES ABSOLUTE AUTO 0.39 K/mm3 (0.16-1.47); MONOCYTES PERCENT AUTO 6 % (4-13); Mean Corpuscular HGB 26.4 pg (26.0-34.0); Mean Corpuscular HGB Conc 31.2 g/dL (31.5-36.5); Mean Corpuscular Volume 85 fL (80-100); Mean Platelet Volume 10.8 fL (9.1-12.4); NEUTROPHILS ABSOLUTE AUTO 4.63 K/mm3 (1.96-9.15); NEUTROPHILS PERCENT AUTO 72 % (41-73); Platelet Count 196 K/mm3 (150-400); RDW Coefficient Variation 16.7 % (11.7-14.2); RDW Standard Deviation 51.4 fL (35.1-46.3); Red Blood Cell Count 5.46 M/mm3 (3.80-5.20); White Blood Cell Count 6.42 K/mm3 (4.00-11.30)
[2022-07-15 04:44] LABS: Bun/Creatinine Ratio 12.8 (12.0-20.0); Calcium, Blood 8.4 mg/dL (8.5-10.1); Creatinine, Blood 1.17 mg/dL (0.40-1.00); Potassium, Blood 3.8 mmol/L (3.5-5.5)
--- NOTE | 2022-07-15 05:10 | NUR ---
SHIFT SUMMARY PATIENT RESTED WELL OVERNIGHT. AOX4. AFIB RATE 90-110. BP STABLE. 3L NC.
--- NOTE | 2022-07-15 16:48 | NUR ---
SHIFT SUMMARY PT IS ALERT AND ORIENTED X 4, SHE IS ABLE TO MAKE HER NEEDS KNOWN AND IS INDEPENDENT IN THE ROOM. BP STABLE, HR HAS BEEN AFIB 100-110'S, THIS AM HR INCREASED TO 140, DR. RANDHAWA MADE AWARE. SPO2 MAINTAINED >95% VIA 3L NC. SHE HAS REPORTED A HEADACHE THAT HAS IMPROVED W/ TYLENOL ADMINISTRATION. SHE USES THE BATHROOM INDEPENDENTLY. OCCASIONAL WET COUGH NOTED. NAUSEA WAS REPORTED THIS AM BUT HAS SINCE RESOLVED, SEE EMAR. SHE HAS DENIED CHEST PAIN/PRESSURE, NUMBNESS AND TINGLING, OR OTHER PAIN. NO OTHER ACUTE CHANGES NOTED. WILL CONTINUE TO MONITOR UNTIL REPORT GIVEN. CALL LIGHT IS IN REACH. PT IS NOW WATHING TV.
--- NOTE | 2022-07-16 06:16 | NUR ---
NO ISSUES OVERNIGHT ASIDE FROM PRN TYLENOL FOR A HEADACHE, PT INDEPENDENT IN ROOM, VSS, DENIES NEEDS
[2022-07-16 06:28] LABS: BASOPHILS ABSOLUTE AUTO 0.02 K/mm3 (0.00-0.23); BASOPHILS PERCENT AUTO 0 % (0-2); EOSINOPHILS ABSOLUTE AUTO 0.08 K/mm3 (0.00-0.68); EOSINOPHILS PERCENT AUTO 2 % (0-6); Hematocrit 42.5 % (33.0-51.0); Hemoglobin 13.1 g/dL (11.5-16.0); IMMATURE GRAN ABSOLUTE AUTO 0.01 K/mm3 (0.00-0.10); IMMATURE GRAN PERCENT AUTO 0 % (0-1); LYMPHOCYTES ABSOLUTE AUTO 0.98 K/mm3 (0.84-5.20); LYMPHOCYTES PERCENT AUTO 20 % (21-46); MONOCYTES ABSOLUTE AUTO 0.37 K/mm3 (0.16-1.47); MONOCYTES PERCENT AUTO 8 % (4-13); Mean Corpuscular HGB 25.9 pg (26.0-34.0); Mean Corpuscular HGB Conc 30.8 g/dL (31.5-36.5); Mean Corpuscular Volume 84 fL (80-100); Mean Platelet Volume 10.6 fL (9.1-12.4); NEUTROPHILS ABSOLUTE AUTO 3.36 K/mm3 (1.96-9.15); NEUTROPHILS PERCENT AUTO 70 % (41-73); Platelet Count 186 K/mm3 (150-400); RDW Coefficient Variation 16.7 % (11.7-14.2); RDW Standard Deviation 51.6 fL (35.1-46.3); Red Blood Cell Count 5.06 M/mm3 (3.80-5.20); White Blood Cell Count 4.82 K/mm3 (4.00-11.30)
[2022-07-16 06:51] LABS: Bun/Creatinine Ratio 16.2 (12.0-20.0); Calcium, Blood 8.5 mg/dL (8.5-10.1); Creatinine, Blood 1.05 mg/dL (0.40-1.00)
--- NOTE | 2022-07-16 18:03 | NUR ---
SHIFT SUMMARY: NO ACUTE CHANGES T/OUT SHIFT. PT A&Ox4, COOPERATIVE W/CARE, INDEPENDENT IN ROOM. EXP WHEEZES NOTED THIS AM THAT CLEARED W/BREATHING TX, O2 SATS MAINTAINED >92%, CURRENTLY ON 2 L/MIN NC. AFIB ON MONITOR, RATE 90s-110s AT REST. PT MEDICATED x1 FOR C/O HEADACHE. PT TOLERATING IV ABX THERAPY. PO METOPROLOL HELD D/TO VS OUTSIDE OF PARAMETER. AT THIS TIME, PT RESTING IN BED W/MEAL TRAY AND CALL LIGHT WITHIN REACH. WILL CONTINUE TO MONITOR AND TREAT ACCORDINGLY UNTIL CHANGE OF SHIFT.
--- NOTE | 2022-07-17 04:30 | NUR ---
NO SIGNIFICANT EVENTS OVERNIGHT. VSS. AFEBRILE.
[2022-07-17 05:01] LABS: BASOPHILS ABSOLUTE AUTO 0.02 K/mm3 (0.00-0.23); BASOPHILS PERCENT AUTO 0 % (0-2); EOSINOPHILS ABSOLUTE AUTO 0.04 K/mm3 (0.00-0.68); EOSINOPHILS PERCENT AUTO 1 % (0-6); Hematocrit 43.9 % (33.0-51.0); Hemoglobin 13.7 g/dL (11.5-16.0); IMMATURE GRAN ABSOLUTE AUTO 0.02 K/mm3 (0.00-0.10); IMMATURE GRAN PERCENT AUTO 0 % (0-1); LYMPHOCYTES PERCENT AUTO 22 % (21-46); MONOCYTES ABSOLUTE AUTO 0.46 K/mm3 (0.16-1.47); MONOCYTES PERCENT AUTO 9 % (4-13); Mean Corpuscular HGB Conc 31.2 g/dL (31.5-36.5); Mean Corpuscular Volume 83 fL (80-100); NEUTROPHILS ABSOLUTE AUTO 3.48 K/mm3 (1.96-9.15); NEUTROPHILS PERCENT AUTO 68 % (41-73); Platelet Count 210 K/mm3 (150-400); RDW Coefficient Variation 16.4 % (11.7-14.2); RDW Standard Deviation 50.1 fL (35.1-46.3); Red Blood Cell Count 5.27 M/mm3 (3.80-5.20); White Blood Cell Count 5.12 K/mm3 (4.00-11.30)
[2022-07-17 05:22] LABS: Bun/Creatinine Ratio 16.4 (12.0-20.0); Calcium, Blood 8.3 mg/dL (8.5-10.1); Creatinine, Blood 1.1 mg/dL (0.40-1.00)
--- NOTE | 2022-07-17 17:32 | NUR ---
SHIFT SUMMARY: NO ACUTE CHANGES THIS SHIFT. PT A&Ox4 W/ A COUPLE NAPS TODAY, CONTINUES INDEPENDENT IN ROOM. LS COARSE W/ONE EPISODE OF WHEEZING THIS AFTERNOON, PROVIDER NOTIFIED AND PRN ORDER OBTAINED, RT PROVIDES BREATHING TX W/IMPROVEMENT NOTED TO WHEEZING. PT CONTINUES TO ENDORSE MILD SOB W/ACTIVITY, O2 SATS MAINTAINED >92%, 1 L/MIN NC. AFIB ON MONITOR W/RATE 90s-110s. PT CONTINUES TO C/O HEADACHE, MEDICATED PER EMAR. AT THIS TIME, PT RESTING QUIETLY IN ROOM W/MEAL TRAY, CALL LIGHT IN REACH. WILL CONTINUE TO MONITOR AND TREAT ACCORDINGLY UNTIL CHANGE OF SHIFT.
--- NOTE | 2022-07-18 06:39 | NUR ---
PT RESTS QUIETLY THROUGHOUT SHIFT, IS NOTED FREQUENTLY AWAKE HOWEVER REMAINS IND IN ROOM. SATS MAINTAIN GREATER THAN 89% ON ROOM AIR WITH SLEEP. PT CONTINUES TO REPORT FEELING IMPROVED FROM ARRIVAL TO HOSPITAL. CONTINUES IN AFIB RATE 100-110S, PRESSURES MAINTAIN THROUGHOUT NOC. NO ACUTE CHANGES THIS SHIFT.
[2022-07-18] MEDS ORDERED: BENZ100A PO (12:31)
[2022-07-18] MEDS ORDERED: DOXY100 PO (12:31)
[2022-07-18] MEDS ORDERED: PROM25 PO (12:32)
[2022-07-18] MEDS ORDERED: VISBIOME 112.51 EACH PO (12:33)
--- NOTE | 2022-07-18 13:43 | NUR ---
PT A&O X4. PT LYING IN BED, STATES SHE IS TIRED AND HAS A HEADACHE. REPORTS HEADACHE 8/10; MEDICATED PER EMAR. VSS. O2 SATS >92% ON RA. PT DENIES SOB EXCEPT WITH EXERTION. PT REPORTS MILD NAUSEA; MEDICATED PER EMAR. NO ACUTE CHANGES THROUGHOUT SHIFT. DAUGHTER IN [place] AT BEDSIDE VISITING. PT DISCHARGED PER PROVIDER ORDER. DISCHARGE PAPERWORK COMPLETED WITH PT. PT LEFT VIA WHEELCHAIR WITH DAUGHTER IN LAW FOR TRANSPORT. BELONGINGS SENT HOME WITH PT. IV REMOVED; SITE FREE OF SWELLING, REDNESS AND TENDERNESS.
== END 2022-07-18 13:29 | disposition home health service (06) | DRG 871 ==
LOC: ER 04:29 → PCU 07:59 → ICUW 07:59 → PCU 07:59 → ICUW 08:54 → PCU 21:23
PROVIDERS: Student in an Organized Health Care Education/Training Program; ADMIT Internal Medicine
DX: A41.50 Gram-negative sepsis, unspecified (principal); J18.9 Pneumonia, unspecified organism; J96.01 Acute respiratory failure with hypoxia; R65.21 Severe sepsis with septic shock; I48.20 Chronic atrial fibrillation, unspecified; N18.30 Chronic kidney disease, stage 3 unspecified; E11.22 Type 2 diabetes mellitus with diabetic chronic kidney disease; I12.9 Hypertensive chronic kidney disease with stage 1 through stage 4 chronic kidney disease, or unspecified chronic kidney disease; K21.9 Gastro-esophageal reflux disease without esophagitis; M10.9 Gout, unspecified; E78.5 Hyperlipidemia, unspecified; E03.9 Hypothyroidism, unspecified; Z20.822 Contact with and (suspected) exposure to COVID-19; E11.42 Type 2 diabetes mellitus with diabetic polyneuropathy; I25.10 Atherosclerotic heart disease of native coronary artery without angina pectoris; Z88.8 Allergy status to other drugs, medicaments and biological substances; Z79.899 Other long term (current) drug therapy; Z79.01 Long term (current) use of anticoagulants; Z87.891 Personal history of nicotine dependence; Z88.2 Allergy status to sulfonamides; Z79.02 Long term (current) use of antithrombotics/antiplatelets; Z79.82 Long term (current) use of aspirin; Z79.811 Long term (current) use of aromatase inhibitors; Z79.891 Long term (current) use of opiate analgesic; I25.2 Old myocardial infarction; Z98.890 Other specified postprocedural states; Z90.710 Acquired absence of both cervix and uterus; Z90.721 Acquired absence of ovaries, unilateral; Z85.3 Personal history of malignant neoplasm of breast; Z90.12 Acquired absence of left breast and nipple
CPT/HCPCS: 0241U; 36415; 71045; 71260; 80048; 80053; 80202; 81001; 82803; 82947; 83605; 83735; 83880; 84145; 84484; 85025; 85379; 87040; 87070; 87086; 87205; 93005; 93010; 94640; 94664; 94760; 94761; 94762; 96361; 96365; 96366; 96368; 99285-25; A9270; J0692; J1940; J2405; J3370; J7030; J7050; Q9967

== ENCOUNTER → 2022-08-03 | Outpatient (CLI) | payer OTHER ==
[~2022-08-03] MED LIST changes: +ALLO100 PO; +AMILORIDE HCL5 M7 PO; +ASPIR 8181 M1 PO; +ATORVASTATIN CA80 M1 PO; +BENZ100A PO; +DOXY100 PO; +FLUOXETINE HCL20 M1 PO; +ISOSORBIDE MONO30 MG PO; +LASIX40 MG PO; +LISINOPRIL2.5 MG PO; +MAGNESIUM OXID400 M1 PO; +PROM25 PO; +SYNTHROID75 MCG PO; +TOPROL XL200 MG PO; +VISBIOME 112.51 EACH PO
[2022-08-04 10:18] LABS: Candida species (DNA Probe) Negative (NEGATIVE); G. vaginalis (DNA Probe) Negative (NEGATIVE); T. vaginalis (DNA Probe) Negative (NEGATIVE)
== END | disposition home or self-care (01) ==
LOC: LAB SHORT 14:20
PROVIDERS: Family Medicine
DX: N76.0 Acute vaginitis (principal)
CPT/HCPCS: 87480; 87510; 87660

== ENCOUNTER 2023-04-18 09:05 | Day surgery (SDC) | payer OTHER ==
[~2023-04-18] VITALS: Ht 165.1 cm; Wt 111.0 kg
--- NOTE | 2023-04-18 10:52 | NUR ---
04/18/23 1052 Simone Mack MONITOR INTACT WITH CONTINUOUS PULSE OXIMETRY, CONTINUOUS END TITAL CO2, AND INTERMITTENT BLOOD PRESSURE. AND EKG ANESTHESIA PROVIDED BY DR. BRANHAM
[2023-04-18 11:25] VITALS: BP 99/69
--- NOTE | 2023-04-18 11:32 | NUR ---
PT ANOX3. ABLE TO MOVE IN BED WITHOUT ASSISTANCE. ASKING FOR PO FLUIDS.
--- NOTE | 2023-04-18 11:55 | NUR ---
IMAGING CALLED FOR BARIUM ENEMA RX, WILL CALL PT TO SCHEDULE TIME- DR KUMARI IS HOPING FOR TOMORROW. PT TOLERATING PO FLUIDS. Patient up to Ambulate independently. Gait steady. Discharge instructions reviewed with patient. Patient verbalizes understanding. Copy given to patient to take home. Pt understands to continue to stay on clear fluids for barium enema tomorrow. Discharged via wheelchair to private car for ride home.
[2023-04-18 11:56] VITALS: BP 117/86
== END 2023-04-18 22:48 | disposition home or self-care (01) ==
LOC: ORSCMMR 09:05 → ORD 10:15 → ORSCMMR 10:15
PROVIDERS: Internal Medicine Gastroenterology
PROC: 0DBM8ZX Excision of Descending Colon, Via Natural or Artificial Opening Endoscopic, Diagnostic (ICD-10-PCS; principal; 2023-04-18 10:15)
DX: Z12.11 Encounter for screening for malignant neoplasm of colon (principal); D12.4 Benign neoplasm of descending colon; I25.2 Old myocardial infarction; Z90.12 Acquired absence of left breast and nipple; E11.9 Type 2 diabetes mellitus without complications; I10 Essential (primary) hypertension; E78.00 Pure hypercholesterolemia, unspecified; F32.A Depression, unspecified; I48.20 Chronic atrial fibrillation, unspecified; Z87.891 Personal history of nicotine dependence; K21.9 Gastro-esophageal reflux disease without esophagitis; E66.01 Morbid (severe) obesity due to excess calories; Z68.41 Body mass index [BMI] 40.0-44.9, adult; Z79.01 Long term (current) use of anticoagulants; Z79.85 Long-term (current) use of injectable non-insulin antidiabetic drugs; Z79.82 Long term (current) use of aspirin; Z79.899 Other long term (current) drug therapy
CPT/HCPCS: 82947; 88305; J2001; J2704; J7120